=== PATIENT | male | born 1980 | race African-American/Black ===

== ENCOUNTER 2018-04-14 11:52 | Emergency (ER) | payer SELFPAY ==
[2018-04-14] MEDS ORDERED: AMOXICILLIN/CLAV 875 MG TAB PO (13:00)
[2018-04-14] MEDS: ACETAMINOPHEN 500 MG TAB PO (13:27)
[2018-04-14] MEDS: AMOXICILLIN/CLAV 875 MG TAB PO (13:32)
== END 2018-04-14 13:56 | disposition home or self-care (01) ==
LOC: FTE 13:56
DX: R22.0 Localized swelling, mass and lump, head (principal); F17.210 Nicotine dependence, cigarettes, uncomplicated
CPT/HCPCS: 99283